=== PATIENT | male | born 1995 | race Caucasian/White ===

== ENCOUNTER 2022-02-23 20:07 | Emergency (ER) | END 2022-02-24 02:25 | disposition home or self-care (01) | DX: T40.411A Poisoning by fentanyl or fentanyl analogs, accidental (unintentional), initial encounter (principal); R11.10 Vomiting, unspecified; F15.10 Other stimulant abuse, uncomplicated; F14.10 Cocaine abuse, uncomplicated; Y92.481 Parking lot as the place of occurrence of the external cause; Z59.00 Homelessness unspecified ==